=== PATIENT | male | born 1945 | race African-American/Black ===

== ENCOUNTER 2016-11-04 11:50 | Inpatient (IN) | payer MEDICARE, OTHER ==
[2016-11-04 08:12] LABS: CREATININE 1.1 mg/dL (0.7-1.2); POTASSIUM 4.7 mmol/L (3.5-5.1)
[2016-11-05 05:04] LABS: HCT 30.5 % (42.0-52.0); HGB 9.7 g/dl (13.2-18.0); MCH 25.8 pg (25.0-31.0); MCHC 31.8 g/dL (32.0-36.0); MCV 81.1 fL (78.0-100.0); RBC 3.76 M/uL (4.70-6.00); RDW 15.4 % (11.5-14.0); WBC 6.5 K/uL (4.0-10.5)
[2016-11-05 05:21] LABS: ALBUMIN 3.4 g/dL (3.4-4.8); BILIRUBIN - TOTAL 0.2 mg/dL (0.1-1.0); CREATININE 1.2 mg/dL (0.7-1.2); GLOBULIN (CALCULATION) 2.5 g/dL (2.2-4.2); POTASSIUM 4.9 mmol/L (3.5-5.1); TOTAL PROTEIN 5.9 g/dL (6.4-8.3)
[2016-11-06 05:31] LABS: HCT 29.5 % (42.0-52.0); HGB 9.5 g/dl (13.2-18.0); MCH 26.1 pg (25.0-31.0); MCHC 32.2 g/dL (32.0-36.0); MPV 9.9 fL (6.0-9.5); RBC 3.64 M/uL (4.70-6.00); RDW 15.3 % (11.5-14.0)
[2016-11-06] MEDS ORDERED: LOTREL 10-40 M1 EACH PO (18:05)
[2016-11-06] MEDS ORDERED: LIPITOR20 MG PO (18:05)
[2016-11-06] MEDS ORDERED: GLUCOPHAGE850 MG PO (18:05)
[2016-11-06] MEDS ORDERED: HYDROCODONE-APA1 TAB PO (18:05)
[2016-11-06] MEDS ORDERED: XANAX1 MG PO (18:06)
[2016-11-06] MEDS ORDERED: XARELTO10 MG PO (18:06)
== END 2016-11-06 14:00 | disposition home or self-care (01) | DRG 470 ==
LOC: FMS 11:50
PROVIDERS: Internal Medicine; Nurse Practitioner Adult Health; ADMIT Legal Medicine
PROC: 0SR904A Replacement of Right Hip Joint with Ceramic on Polyethylene Synthetic Substitute, Uncemented, Open Approach (ICD-10-PCS; principal; 2016-11-04 08:30)
DX: M16.11 Unilateral primary osteoarthritis, right hip (principal); E11.9 Type 2 diabetes mellitus without complications; I10 Essential (primary) hypertension; D62 Acute posthemorrhagic anemia; E78.00 Pure hypercholesterolemia, unspecified; E78.5 Hyperlipidemia, unspecified; Z96.651 Presence of right artificial knee joint; Z83.3 Family history of diabetes mellitus; Z82.49 Family history of ischemic heart disease and other diseases of the circulatory system; Z83.6 Family history of other diseases of the respiratory system
CPT/HCPCS: 36415; 73501; 76000; 80048; 80053; 86850; 86900; 86901; 88304; 88311; 94010; 94760; 94762; 97110; 97116; 97162; 97166; 97530; 97530-GP; 97535; C1776; J0131; J0697; J1170; J1885; J2270; J2405; J2704; J2795; J2916; J3010